=== PATIENT | female | born 1975 | race Caucasian/White ===

== ENCOUNTER 2021-03-14 18:50 | Emergency (ER) | payer OTHER ==
[~2021-03-14] VITALS: Ht 154.9 cm; Wt 56.7 kg
[2021-03-14 19:38] LABS: HEMATOCRIT 45.5 % (37.0-47.0); HEMOGLOBIN 14.9 gm/dL (12.0-15.0); MCH 34.6 pg (26.0-34.0); MCHC 32.8 g/dL (28.0-37.0); MCV 105.2 fL (80.0-100.0); MPV 6.9 fl. (7.2-11.1); RBC 4.32 mil/uL (4.20-5.00); RDW-CV 13.9 % (10.5-14.5); WBC 9.8 thou/uL (4.0-11.0)
[2021-03-14 19:46] LABS: CALCIUM 8.3 mg/dL (8.5-10.1); CREATININE 0.9 mg/dL (0.6-1.3); POTASSIUM 3.2 mmol/L (3.5-5.1)
[2021-03-14 19:49] LABS: URINE BILIRUBIN NEGATIVE (Negative); URINE BLOOD NEGATIVE (Negative); URINE CLARITY SL CLOUDY; URINE COLOR YELLOW; URINE GLUCOSE-RANDOM NEGATIVE (Negative); URINE KETONES TRACE (Negative); URINE LEUKOCYTES 1+ (Negative); URINE NITRITE NEGATIVE (Negative); URINE PROTEIN NEGATIVE (Negative); URINE SPECIFIC GRAVITY 1.025 (1.005-1.030); URINE UROBILINOGEN 0.2 E.U./dl (0.2-1.0)
[2021-03-14 19:51] LABS: ALBUMIN 4.4 g/dL (3.4-5.0); TOTAL BILIRUBIN 0.1 mg/dL (<0.1-1.0)
[2021-03-14 19:55] LABS: BACTERIA >30 Many /HPF (None Seen); CASTS None Seen /LPF (None Seen); MUCUS 0-3 Light strn/LPF (None Seen); SQUAMOUS 0-3 Few /LPF (0-3); URINE RBC None Seen /HPF (0-2)
[2021-03-14 19:56] LABS: CRYSTALS None Seen /LPF (None Seen)
[2021-03-14 19:58] LABS: AMP/METHAMP Negative (Negative); BARBITURATES Negative (Negative); BENZODIAZEPINES Negative (Negative); COCAINE POSITIVE (Negative); METHADONE Negative (Negative); OPIATES Negative (Negative); PCP Negative (Negative); THC POSITIVE (Negative)
[2021-03-14 21:27] LABS: ALCOHOL 348 mg/dL (<10); SALICYLATE 6.7 mg/dL (2.8-20.0)
[2021-03-14 21:32] LABS: ACETAMINOPHEN < 2 ug/mL (10-30)
[2021-03-15 11:52] VITALS: BP 122/68
== END 2021-03-15 11:53 | disposition home or self-care (01) ==
LOC: M.ERS 18:50
PROVIDERS: Personal Emergency Response Attendant
DX: R45.851 Suicidal ideations (principal); Z20.822 Contact with and (suspected) exposure to COVID-19; F10.129 Alcohol abuse with intoxication, unspecified; F14.129 Cocaine abuse with intoxication, unspecified